=== PATIENT | female | born 1980 | race Caucasian/White ===

== ENCOUNTER 2021-11-23 12:21 | Emergency (ER) | payer SELFPAY ==
[2021-11-23 12:39] VITALS: TEMP 98.3; BMI 28.8
[2021-11-23] MEDS ORDERED: ACETAMINOPHEN 1000 MG/100 ML BAG IVPB ONE (13:49)
[2021-11-23] MEDS ORDERED: SODIUM CHLORIDE 0.9% 500 ML INFUS.BAG IV ONE (13:49)
[2021-11-23] MEDS ORDERED: ACETAMINOPHEN INJECTION 100 ML IVPB ONE (13:54)
[2021-11-23 14:53] LABS: BASO % 0.3 % (0-2.0); HCG,QUALITATIVE URINE Positive; HEMATOCRIT 36.2 % (32.4-45.2); LYMPH % 20.8 % (8-40); MCH 27.9 pg (25.7-33.7); MCHC 33.2 g/dl (32.0-36.0); MEAN PLT VOLUME 8.5 fl (7.5-11.1); MONO % 6.5 % (3.8-10.2); NEUT % 71.4 % (42.8-82.8); PLATELET COUNT 166 10^3/uL (134-434); RBC 4.31 M/mm3 (3.60-5.2); RDW 14.8 % (11.6-15.6); WHITE BLOOD COUNT 6.2 K/mm3 (4.0-10.0)
[2021-11-23 14:55] LABS: EPI CELLS >36 /uL (0-25.1); HYALINE CASTS 1 /uL (0-3.1); URINE APPEARANCE CLOUDY; URINE BACTERIA 37 /uL (0-1359); URINE BILIRUBIN NEGATIVE (NEGATIVE); URINE COLOR RED; URINE GLUCOSE (UA) NEGATIVE (NEGATIVE); URINE KETONE NEGATIVE (NEGATIVE); URINE LEUK ESTERASE 2+ (NEGATIVE); URINE NITRITE NEGATIVE (NEGATIVE); URINE PROTEIN 1+ (NEGATIVE); URINE UROBILINOGEN 0.2 mg/dL (0.2-1.0); URINE WBC 143 /uL (0-25.8)
[2021-11-23 15:14] LABS: ALBUMIN 3.7 g/dl (3.4-5.0); BLOOD UREA NITROGEN 7.9 mg/dL (7-18); CALCIUM 8.6 mg/dL (8.5-10.1)
[2021-11-23 15:17] LABS: CREATININE 0.7 mg/dL (0.55-1.3)
[2021-11-23 15:19] LABS: BILIRUBIN,TOTAL 0.2 mg/dL (0.2-1)
[2021-11-23 17:58] VITALS: BP 120/77; PULSE 65
== END 2021-11-23 17:45 | disposition home or self-care (01) ==
LOC: JER 12:21
PROC: 3E0333Z Introduction of Anti-inflammatory into Peripheral Vein, Percutaneous Approach (ICD-10-PCS; principal; 2021-11-23)
DX: O20.0 Threatened abortion (principal)
CPT/HCPCS: 36415; 76817-TC; 80053; 81003; 84702; 84703; 85025; 86850; 86900; 86901; 87086; 99284-25

== ENCOUNTER 2021-11-25 10:51 | Emergency (ER) | payer SELFPAY ==
[2021-11-25 11:08] VITALS: BP 118/68; PULSE 63; TEMP 98.7; BMI 28.8
== END 2021-11-25 12:39 | disposition home or self-care (01) ==
LOC: JERFT 10:51 → JER 10:51 → JERFT 12:39
DX: O03.9 Complete or unspecified spontaneous abortion without complication (principal)
CPT/HCPCS: 36415; 84702; 99283-25

== ENCOUNTER 2023-06-16 06:00 | Inpatient (IN) | payer OTHER ==
[2023-06-16 06:54] VITALS: BMI 34.2
[2023-06-16] MEDS ORDERED: CITRIC ACID/SODIUM CITRATE 30 ML UNIT-DOSE CUP PO ONE (07:00)
[2023-06-16] MEDS ORDERED: ELECTROLYTE-148 SOLN 500 ML IV ONE (07:00)
[2023-06-16] MEDS ORDERED: ELECTROLYTE-148 SOLN 1,000 ML IV SCH (07:30)
[2023-06-16] MEDS ORDERED: ONDANSETRON 4 MG/2 ML VIAL IVPUSH PRN (10:19)
[2023-06-16] MEDS ORDERED: ACETAMINOPHEN 325 MG TABLET (FP) PO PRN ×2 (10:19→12:09)
[2023-06-16] MEDS ORDERED: morphine SULFATE/PF 1 MG/2 ML (2cc Syringe - QUVA) ONE (11:05)
[2023-06-16] MEDS ORDERED: PHENYLEPHRINE HCL 10 MG/1 ML SINGLE DOSE VIAL ONE (11:05)
[2023-06-16] MEDS ORDERED: OXYTOCIN 20 UNITS in 0.9% NS 20 UNIT/1,000 ML INFUS.BAG IV ONE (11:58)
[2023-06-16] MEDS: OXYTOCIN 20 UNITS in 0.9% NS 20 UNIT/1,000 ML INFUS.BAG IV SCH ×2 (11:59→18:05)
[2023-06-16] MEDS ORDERED: METHYLERGONOVINE MALEATE 0.2 MG/1 ML AMP IM PRN (12:09)
[2023-06-16] MEDS ORDERED: IBUPROFEN 800 MG/8 ML IJ IVPB PRN (12:09)
[2023-06-16] MEDS ORDERED: ceFAZolin SODIUM 1 GM VIAL ONE ×2 (12:10)
[2023-06-16] MEDS ORDERED: VASOPRESSIN 20 UNITS/ML VIAL IV ONE (12:10)
[2023-06-16] MEDS ORDERED: OXYTOCIN 10 UNITS/ML VIAL ONE ×2 (12:10)
[2023-06-16] MEDS ORDERED: IBUPROFEN 800 MG/8 ML IJ IVPB ONE (13:06)
[2023-06-16] MEDS: FERROUS SO4 325 MG TABLET (FP) PO SCH (22:00)
[2023-06-17] MEDS ORDERED: oxyCODONE HCL 5 MG TABLET PO PRN (00:09)
[2023-06-17 07:23] LABS: BASO % 0.3 % (0-2.0); EOS % 0.3 % (0-4.5); HEMATOCRIT 25.6 % (32.4-45.2); HEMOGLOBIN 8.6 GM/dL (10.7-15.3); MCHC 33.5 g/dl (32.0-36.0); MEAN CELL VOLUME 86.6 fl (80-96); MONO % 4.6 % (3.8-10.2); NEUT % 80.8 % (42.8-82.8); PLATELET COUNT 133 10^3/uL (134-434); RBC 2.96 M/mm3 (3.60-5.2); RDW 15.7 % (11.6-15.6); WHITE BLOOD COUNT 8.4 K/mm3 (4.0-10.0)
[2023-06-17] MEDS: IBUPROFEN 600 MG TABLET (FP) PO PRN ×2 (08:34→17:34)
[2023-06-17] MEDS: SIMETHICONE 80 MG TAB.CHEW (FP) PO PRN ×2 (08:34→17:34)
[2023-06-17] MEDS: PRENATAL VITAMINS W/ FOLIC ACID TABLET (FP) PO SCH (10:11)
[2023-06-17] MEDS: FERROUS SO4 325 MG TABLET (FP) PO SCH ×2 (10:12→21:33)
[2023-06-17] MEDS ORDERED: BISACODYL 10 MG SUPP.RECT RC PRN (12:09)
[2023-06-17 22:20] VITALS: RESP 18
[2023-06-18] MEDS: SIMETHICONE 80 MG TAB.CHEW (FP) PO PRN (07:32)
[2023-06-18] MEDS: IBUPROFEN 600 MG TABLET (FP) PO PRN ×2 (07:32→20:17)
[2023-06-18] MEDS: PRENATAL VITAMINS W/ FOLIC ACID TABLET (FP) PO SCH (09:12)
[2023-06-18] MEDS: FERROUS SO4 325 MG TABLET (FP) PO SCH ×2 (09:12→21:53)
[2023-06-19 08:45] VITALS: BP 114/61; PULSE 74; TEMP 98.1
[2023-06-19 08:52] LABS: BASO % 0.2 % (0-2.0); EOS % 2.6 % (0-4.5); HEMATOCRIT 28.5 % (32.4-45.2); HEMOGLOBIN 9.6 GM/dL (10.7-15.3); LYMPH % 19.1 % (8-40); MCH 29.3 pg (25.7-33.7); MCHC 33.5 g/dl (32.0-36.0); MEAN CELL VOLUME 87.5 fl (80-96); MEAN PLT VOLUME 8.7 fl (7.5-11.1); MONO % 5.4 % (3.8-10.2); NEUT % 72.7 % (42.8-82.8); PLATELET COUNT 203 10^3/uL (134-434); RBC 3.26 M/mm3 (3.60-5.2); WHITE BLOOD COUNT 8.8 K/mm3 (4.0-10.0)
[2023-06-19] MEDS: PRENATAL VITAMINS W/ FOLIC ACID TABLET (FP) PO SCH (09:55)
[2023-06-19] MEDS: FERROUS SO4 325 MG TABLET (FP) PO SCH (09:55)
== END 2023-06-19 13:45 | disposition home or self-care (01) | DRG 540 ==
LOC: JLDR 06:00 → J3W 14:15
PROVIDERS: ADMIT Obstetrics & Gynecology; ATTEND Obstetrics & Gynecology
PROC: 10D00Z1 Extraction of Products of Conception, Low, Open Approach (ICD-10-PCS; principal; 2023-06-16)
DX: O34.211 Maternal care for low transverse scar from previous cesarean delivery (principal); N85.8 Other specified noninflammatory disorders of uterus; Z3A.39 39 weeks gestation of pregnancy; Z37.0 Single live birth
CPT/HCPCS: 36415; 85025; 94010